=== PATIENT | male | born 1970 | race Caucasian/White ===

== ENCOUNTER 2018-11-16 23:47 | Emergency (ER) | payer OTHER ==
[2018-11-17] MEDS ORDERED: Tetan/Diph/Pertus SYR(Tdap)* 0.5 ML SYR(BOOSTRIX) use SYR IM ONE
--- NOTE | 2018-11-17 00:17 | ED ---
Syncope/Near Syncope - HPI Summary HPI Summary: Pt is a 48 y/o male brought in by EMS who presents to the ED s/p syncope. As per nurses note he had a syncopal event at a bar and a subsequent head injury. He has been drinking alcohol tonight and fell off the bar stool. Pts head is currently bleeding posteriorly. Upon arrival he was combative and refused all treatment. He is heavily intoxicated and gives no relevant history. Pt is unsure how he injured himself. He is unsure when his last tetanus shot was. Pt is a level 5 caveat due to his intoxication. - History Of Current Complaint Time Seen by Provider: 11/16/18 23:54 Hx Obtained From: Patient, EMS Hx From Patient Unobtainable Due To: Other - intoxication Onset/Duration: Gradual Onset, Resolved Context: Loss Of Consciousness Activity At Onset: Other - drinking alcohol Associated Head Trauma: Yes Alleviating Factor(s): Spontaneous Resolution - Allergies/Home Medications Allergies/Adverse Reactions: Allergies Allergy/AdvReac Type Severity Reaction Status Date / Time No Known Allergies Allergy Verified 04/15/18 10:05 PMH/Surg Hx/FS Hx/Imm Hx Endocrine/Hematology History: Denies: Hx Diabetes Cardiovascular History: Denies: Hx Hypertension, Hx Pacemaker/ICD History: Denies: Hx Renal Disease Sensory History: Denies: Hx Hearing Aid Psychiatric History: Denies: Hx Panic Disorder - Surgical History Surgery Procedure, Year, and Place: DENIES Infectious Disease History: No Infectious Disease History: Denies: Traveled Outside the [place] in Last 30 Days - Family History Known Family History: Negative: Hypertension, Diabetes - Social History Alcohol Use: Occasionally Hx Substance Use: No Substance Use Type: Reports: None Hx Tobacco Use: No Smoking Status (MU): Never Smoked Tobacco Review of Systems Positive: Other - posterior head injury Positive: Syncope All Other Systems Reviewed And Are Negative: No Physical Exam - Summary Physical Exam Summary: Appearance: well appearing, no pain distress, heavily intoxicated, smells of alcohol Skin: warm, dry, reflects adequate perfusion Head/face: normal, 5 cm linear laceration to right occiput, no other signs of injury Eyes: EOMI, ABDOULAYE, conjunctiva injected ENT: mucous membranes moist Neck: supple, non-tender, no pain with ROM Respiratory: CTA, breath sounds present Cardiovascular: RRR, pulses symmetrical Abdomen: non-tender, soft Bowel Sounds: present Musculoskeletal: normal, strength/ROM intact Neuro: sensory motor intact, alert and oriented to person and place only, slurring speech Triage Information Reviewed: Yes Vital Signs On Initial Exam: Initial Vitals Temp Pulse Resp BP Pulse Ox 0 F 0 18 0/0 0 11/16/18 23:53 11/16/18 23:53 11/16/18 23:53 11/16/18 23:53 11/16/18 23:53 Vital Signs Reviewed: Yes Completion Of Physical Exam Limited Due To: Level 5 - intoxication - [place] Coma Scale Best Eye Response: 4 - Spontaneous Best Motor Response: 6 - Obeys Commands Best Verbal Response: 4 - Confused Coma Scale Total: 14 Procedures - Laceration/Wound Repair 1 Location: head - right occiput Description: Linear Length, Depth and Shape: 5 cm Laceration/Wound Explored: clean - cleaned with soap and water Closure: Ryder #__ - 5 Diagnostics - Vital Signs Vital Signs Temp Pulse Resp BP Pulse Ox 11/16/18 23:53 0 F 0 18 0/0 0 - Laboratory Lab Statement: Any lab studies that have been ordered have been reviewed, and results considered in the medical decision making process. - CT Cervical Spine CT CT Interpretation Completed By: Radiologist Summary of CT Findings: No acute findings. ED physician reviewed radiology report. Brain CT CT Interpretation Completed By: Radiologist Summary of CT Findings: No acute intracranial abnormalities. ED physician reviewed radiology report. Course/Dx Course Of Treatment: Patient presents acutely intoxicated with a laceration to his posterior scalp. A head CT and CT of the cervical spine were negative. His laceration was repaired with ryder. His tetanus was updated. He was allowed to sober here and was discharged when he demonstrated functional capacity as evidenced by clear speech, steady gait and ability to reason normally. He will visit his father was an inpatient upstairs and will stay there until family comes to give him a ride home. - Diagnoses Differential Diagnosis/HQI/PQRI: Positive: Other - Seizure, syncope, fall, intoxication, intracranial injury Provider Diagnoses: Scalp laceration, Closed head injury, Alcohol intoxication Discharge - Sign-Out/Discharge Documenting (check all that apply): Patient Departure - Discharge Patient Received Moderate/Deep Sedation with Procedure: No - Discharge Plan Condition: Improved Disposition: HOME Patient Education Materials: Laceration (ED), Alcohol Intoxication (ED), Staple Care (ED) Referrals: [facility] [Outside] Additional Instructions: Have your ryder removed in 10 days. Return to the ED with any new or worsening symptoms. - Billing Disposition and Condition Condition: IMPROVED Disposition: Home - Attestation Statements Document Initiated by Elizabeth: Yes Documenting Scribe: Ashlie Bee Provider For Whom Scribe is Documenting (Include Credential): Rj Yun MD Scribe Attestation: Ashlie Beltran, scribed for Rj Yun MD on 11/17/18 at 0610. Scribe Documentation Reviewed: Yes Provider Attestation: The documentation as recorded by the Ashlie resendiz accurately reflects the service I personally performed and the decisions made by Rj villalpando MD Status of Scribe Document: Viewed
[2018-11-17 06:54] VITALS: BP 130/88
== END 2018-11-17 06:54 | disposition home or self-care (01) ==
LOC: ED 23:47
DX: S01.01XA Laceration without foreign body of scalp, initial encounter (principal); S09.90XA Unspecified injury of head, initial encounter; W07.XXXA Fall from chair, initial encounter; Y92.89 Other specified places as the place of occurrence of the external cause; F10.129 Alcohol abuse with intoxication, unspecified; Z23 Encounter for immunization
CPT/HCPCS: 12002; 70450; 72125; 90471; 90715; 99282